=== PATIENT | male | born 1990 | race Caucasian/White ===

== ENCOUNTER 2018-04-16 16:13 | Emergency (ER) | payer MEDICAID, OTHER ==
[~2018-04-16] VITALS: Ht 172.7 cm; Wt 181.4 kg
--- NOTE | 2018-04-16 16:13 | NUR ---
PT [facility] FOR [employer]
[2018-04-16 16:19] VITALS: BP 130/64
--- NOTE | 2018-04-16 16:40 | NUR ---
PATIENT BROUGHT IN BY FOR MEDICAL CLEARANCE FROM [facility]/PREBOOK. NO APPARENT DISTRESS
[2018-04-16 17:14] VITALS: BP 129/72
--- NOTE | 2018-04-16 17:17 | NUR ---
Patient discharged with v/s stable. Written and verbal after care instructions given and explained. Patient verbalized understanding. Ambulatory with steady gait. All questions addressed prior to discharge. Advised to follow up with PMD. OK TO BOOK BY DR. MIJARES.
== END 2018-04-16 17:17 | disposition home or self-care (01) ==
LOC: MED 16:13
DX: Z02.89 Encounter for other administrative examinations (principal); I10 Essential (primary) hypertension
CPT/HCPCS: 99283